=== PATIENT | female | born 1945 | race Caucasian/White ===

== ENCOUNTER → 2023-11-16 09:58 | Outpatient (ROUT) | payer OTHER, SELFPAY ==
[2023-11-16 10:40] LABS: Influenza A - CEPHEID Flu A NEGATIVE (NEGATIVE); Influenza B - CEPHEID Flu B NEGATIVE (NEGATIVE); Respiratory Syncytial Virus Negative (Negative)
[2023-11-16 10:41] LABS: COVID-19 CEPHEID 4-PLEX PCR Negative (Negative)
== END ==
PROVIDERS: PCP Registered Nurse; Visit Provider Registered Nurse
DX: R05.1 Acute cough (principal)
CPT/HCPCS: 0241U

== ENCOUNTER → 2023-11-16 10:24 | Outpatient (CLI) | payer OTHER, SELFPAY ==
--- NOTE | 2023-11-16 10:28 | DI.RAD.S_ITS ---
PROCEDURE: XR CHEST 2V INDICATIONS: COUGH TECHNIQUE: 2 views of the chest were acquired. COMPARISON: None. FINDINGS: Surgical changes and devices: None. Lungs and pleura: Lungs are clear. No pleural effusions or pneumothorax. Mediastinum: Mediastinal contours are normal. Heart size is normal. Bones and chest wall: No suspicious bony abnormalities. Soft tissues appear unremarkable. IMPRESSION: No acute cardiopulmonary abnormality is seen. Dictated by: Marino Lawton M.D. on 11/16/2023 at 11:59 Approved by: Marino Lawton M.D. on 11/16/2023 at 12:00
== END ==
LOC: RAD 10:26
PROVIDERS: PCP Registered Nurse; Referring Provider Registered Nurse; Visit Provider Registered Nurse
DX: R05.1 Acute cough (principal)
CPT/HCPCS: 0241U; 71046

== ENCOUNTER → 2023-12-11 11:28 | Outpatient (CLI) | payer OTHER, SELFPAY ==
--- NOTE | 2023-12-11 11:29 | DI.RAD.S_ITS ---
Bone Density Report Name: AYSHA HERNANDEZ Age: 78 Sex: Female Ethnicity: White Date of : 1945 Indication: postmenopausal; screening for osteoporosis; Referring Provider: PERRY GUILLEN Study: Bone densitometry was performed. Exam Date: December 11, 2023 Accession number: [id number] Bone Density: Region BMD T-score Z-score Classification AP Spine(L1, L2, L4) 0.773 -2.4 0.3 Osteopenia Femoral Neck (Left) 0.530 -2.9 -0.6 Osteoporosis Total Hip (Left) 0.688 -2.1 0.0 Osteopenia Femoral Neck (Right) 0.471 -3.4 -1.1 Osteoporosis Total Hip (Right) 0.642 -2.5 -0.4 Osteoporosis Total Hip Mean 0.665 -2.3 -0.2 Osteopenia World Health Organization criteria for BMD impression classify patients as: Normal (T-score at or above -1.0), Osteopenia (T-score between -1.0 and -2.5), or Osteoporosis (T-score at or below -2.5). 10-year Fracture Risk: FRAX not reported because: Some T-score for Spine Total or Hip Total or Femoral Neck at or below -2.5 Impression: The patient has osteoporosis, based on the Right Femoral Neck T-score. Discussion: INCREASED RISK OF FRACTURE. BONE DENSITY IS UNDESIRABLY LOW AT ONE OR MORE SKELETAL SITES, CONSISTENT WITH POSTMENOPAUSAL OSTEOPOROSIS. This patient's lowest T-score meets the World Health Organization's (WHO) criteria for osteoporosis at one or more sites (T-score -2.5 or below). In untreated patients, the risk of osteoporotic fracture increases approximately two-fold for each 1.0 SD decrease in T-score. Low bone density is not the only risk factor for fracture; also consider factors such as patient's age, frailty or poor health, risk of falling, risk of injury, previous osteoporotic fracture, family history of osteoporosis, cigarette smoking, low body weight, etc. Not everyone with low bone mineral density has osteoporosis; osteomalacia and other metabolic bone disorders should also be considered. Patients who have osteoporosis should be evaluated for specific diseases and conditions (secondary causes) that may cause or contribute to bone loss. The [place] [employer] (AACE) and National Osteoporosis Foundation (NOF) recommend pharmacologic intervention for all postmenopausal women whose T-score is in this range. The patient should follow a healthful lifestyle (good nutrition with adequate calcium and vitamin D, and appropriate weight-bearing exercise). Follow-Up: Consider a repeat BMD and Vertebral Fracture Assessment (VFA) exam in 2 years or sooner if medically necessary, to reassess this patient's status. Reported by: [facility] MORELIA LYNN M.D. on 12/11/2023 12:05:00 PM.
== END ==
PROVIDERS: PCP Registered Nurse; Referring Provider Registered Nurse; Visit Provider Registered Nurse
DX: Z78.0 Asymptomatic menopausal state (principal); Z13.820 Encounter for screening for osteoporosis; M81.0 Age-related osteoporosis without current pathological fracture
CPT/HCPCS: 77080

== ENCOUNTER → 2024-06-16 10:07 | Outpatient (CLI) | payer OTHER, SELFPAY ==
--- NOTE | 2024-06-16 10:09 | DI.RAD.S_ITS ---
PROCEDURE: XR CHEST 2V INDICATIONS: NIGHT SWEATS TECHNIQUE: 2 views of the chest were acquired. COMPARISON: [facility], CR, XR CHEST 2V, 11/16/2023, 10:40. FINDINGS: Surgical changes and devices: With the Lungs and pleura: Lungs are clear. No pleural effusions or pneumothorax. Mediastinum: Mediastinal contours are normal. Heart size is normal. Bones and chest wall: No suspicious bony abnormalities. Soft tissues appear unremarkable. IMPRESSION: No acute cardiopulmonary process. Dictated by: Paul Castillo M.D. on 06/16/2024 at 15:47 Approved by: Paul Castillo M.D. on 06/16/2024 at 15:54
== END ==
PROVIDERS: PCP Registered Nurse; Referring Provider Registered Nurse; Visit Provider Registered Nurse
DX: R61 Generalized hyperhidrosis (principal)
CPT/HCPCS: 71046

== ENCOUNTER → 2024-06-25 09:32 | Outpatient (CLI) | payer OTHER, SELFPAY ==
--- NOTE | 2024-06-25 09:33 | DI.CT.S_ITS ---
PROCEDURE: CT ABDOMEN PELVIS W CON INDICATIONS: NIGHT SWEATS, ABD PAIN TECHNIQUE: After the administration of intravenous contrast, axial sections acquired from the lung bases to the pubic symphysis. Coronal and sagittal reformats were performed. For radiation dose reduction, the following was used: automated exposure control, adjustment of mA and/or kV according to patient size. COMPARISON: [facility], CR, XR CHEST 2V, 06/16/2024, 10:10. FINDINGS: Image quality: Diagnostic. Lower Chest: Mild bronchiectasis. No pleural effusion. ABDOMEN: Liver: Right medial hypodensity measuring 1.3 cm, (2/31). Slightly increased density compared to a suspected cyst in the right lobe. Gallbladder: No radiopaque gallstones or wall thickening. Biliary ducts: No biliary dilation. Pancreas: No ductal dilation. Cyst in the tail the pancreas measuring 0.7 cm, (3/24). Cyst in the head of the pancreas measuring 1 cm, (3/66). No peripancreatic fluid collection. Spleen: Size is within normal limits. Adrenal Glands: Left adrenal nodule measuring 1.2 cm, (2/21). Kidneys and Ureters: No hydronephrosis. No solid mass. No complex renal cystic lesion which requires follow up. Stomach and Bowel: Normal colonic caliber, without significant wall thickening. Diverticulosis. Normal appendix. Peritoneum: No abnormal intraperitoneal fluid. No free air. Ventral Wall: No significant ventral hernia. Abdominal Nodes: No retroperitoneal or mesenteric adenopathy by size criteria. Vessels: Upper abdominal aorta measures 3 cm, (3/28). PELVIS: Pelvic Organs: Retroverted uterus, lobular appearance. Bladder: No bladder wall thickening, accounting for underdistention. Pelvic Nodes: No enlarged lymph nodes. Miscellaneous: No inguinal hernias are seen. Bones: No aggressive osseous abnormality. Multilevel DDD. IMPRESSION: 1. No adenopathy or splenomegaly. 2. Hypodense focus in the medial right liver measuring 1.3 cm. Indeterminate. However, this could be a benign cyst as there are other benign cysts. Hemangioma is also possibility. Less likely metastasis. Recommend MRI abdomen with and without IV contrast. 3. Small cysts in the pancreas measuring 1 cm and 0.7 cm. These could represent small side branch IPMN. Recommend abdominal MRI. 4. Lobular appearing uterus. Recommend pelvic ultrasound. Dictated by: Johnathon Hansen M.D. on 06/26/2024 at 13:49 Approved by: Johnathon Hansen M.D. on 06/26/2024 at 14:06
== END ==
LOC: CT 09:32
PROVIDERS: PCP Registered Nurse; Referring Provider Registered Nurse; Visit Provider Registered Nurse
DX: K86.2 Cyst of pancreas (principal); R61 Generalized hyperhidrosis; R10.84 Generalized abdominal pain
CPT/HCPCS: 74177; Q9967

== ENCOUNTER → 2024-07-24 11:59 | Outpatient (CLI) | payer OTHER, SELFPAY ==
--- NOTE | 2024-07-24 12:02 | DI.RAD.S_ITS ---
PROCEDURE: XR KNEE RT 3V INDICATIONS: Right knee pain, swelling TECHNIQUE: 3 views of the knee were acquired. COMPARISON: None. FINDINGS: Bones: No fractures or dislocations. No suspicious bony lesions. Mild osteoarthritic changes with joint space narrowing and osteophyte formation most prominent in the lateral patellofemoral compartments Soft tissues: No joint effusion. No suspicious soft tissue calcifications. IMPRESSION: No acute bony abnormality or significant effusion. Dictated by: Shiv Ortega M.D. on 07/24/2024 at 11:21 Approved by: Shiv Ortega M.D. on 07/24/2024 at 12:06
== END ==
LOC: RAD 12:01
PROVIDERS: PCP Registered Nurse; Referring Provider Physician Assistant Surgical; Visit Provider Physician Assistant Surgical
DX: M25.561 Pain in right knee (principal)
CPT/HCPCS: 73562

== ENCOUNTER → 2025-08-17 11:57 | Outpatient (CLI) | payer OTHER, SELFPAY ==
--- NOTE | 2025-08-17 11:59 | DI.RAD.S_ITS ---
PROCEDURE: XR PELVIS 1-2V INDICATIONS: Unspecified fall, initial encounter TECHNIQUE: 1 view(s) of the pelvis acquired. COMPARISON: [facility], CT, CT ABDOMEN PELVIS W CON, 06/25/2024, 11:01. FINDINGS: Bones: No fractures identified. No dislocations. No suspicious bony lesions. Moderate bilateral hip DJD. Soft tissues: Visualized bowel gas pattern is normal. No suspicious soft tissue calcifications. IMPRESSION: No fracture identified. If high suspicion for occult fracture consider CT bony pelvis. Dictated by: Johnathon Hansen M.D. on 08/17/2025 at 15:22 Approved by: Johnathon Hansen M.D. on 08/17/2025 at 15:23
== END ==
LOC: RAD 11:58
PROVIDERS: PCP Internal Medicine; Referring Provider Internal Medicine; Visit Provider Internal Medicine
DX: S30.0XXA Contusion of lower back and pelvis, initial encounter (principal); M16.0 Bilateral primary osteoarthritis of hip; W19.XXXA Unspecified fall, initial encounter
CPT/HCPCS: 72170

== ENCOUNTER → 2025-08-30 10:51 | Outpatient (CLI) | payer OTHER, SELFPAY ==
--- NOTE | 2025-08-30 10:53 | DI.RAD.S_ITS ---
PROCEDURE: XR LUMBAR SPINE 2-3V INDICATIONS: Low back pain, unspecified TECHNIQUE: 3 views of the lumbar spine were acquired. COMPARISON: None. FINDINGS: Bones: 5 [id number] vertebrae are present. There is normal bony alignment. No vertebral body compression fractures. No suspicious bony lesions. Moderate to severe, multilevel degenerative disc disease most prominent at L1-2, L2-3. Diffuse facet arthrosis, most prominent at L4-5, L5-S1. Soft tissues: Overlying bowel gas pattern is normal. No suspicious soft tissue calcifications. IMPRESSION: Moderate to severe, multilevel degenerative disc disease and diffuse facet arthrosis. Dictated by: Lev Owens M.D. on 08/30/2025 at 12:05 Approved by: Lev Owens M.D. on 08/30/2025 at 12:06
== END ==
PROVIDERS: PCP Internal Medicine; Referring Provider Internal Medicine; Visit Provider Internal Medicine
DX: M47.816 Spondylosis without myelopathy or radiculopathy, lumbar region (principal); M47.817 Spondylosis without myelopathy or radiculopathy, lumbosacral region; M51.360 Other intervertebral disc degeneration, lumbar region with discogenic back pain only; G89.29 Other chronic pain
CPT/HCPCS: 72100